=== PATIENT | male | born 1975 | race Caucasian/White ===

== ENCOUNTER → 2017-08-20 | Outpatient (CLI) | payer OTHER ==
--- NOTE | 2017-08-21 12:53 | RADIOLOGY REPORT (SQ) ---
EXAM DESCRIPTION: MRI RT UPPER EXTREMITY COMBO COMPLETED DATE/TIME: 08/20/2017 7:47 pm REASON FOR STUDY: MASS OF JOINT OF RIGHT HAND, OTHER SPECIFIED JOINT DISORDERS, RIGHT HAND M25.841 OTHER SPECIFIED JOINT DISORDERS, RIGHT HAND COMPARISON: None. TECHNIQUE: Multiplanar imaging of the right hand to include fat and fluid sensitive sequences. RENAL FUNCTION: Not indicated LIMITATIONS: None. FINDINGS: In the subcutaneous tissues on the dorsal aspect of the 3rd metacarpophalangeal joint, the re is a 2.5 x 6 mm well-circumscribed lesion following fluid on all sequences associated with more ge neralized swelling in the soft tissues. There is thickening and slight increased fluid in the adjace nt extensor tendon sheath. Marrow signal is normal. IMPRESSION: Nonaggressive cystic lesion, either posttraumatic or ganglion cyst. Mild tenosynovitis in the adjacent extensor tendon. TECHNICAL DOCUMENTATION: JOB ID: [id number] [employer]- All Rights Reserved Reading location - IP/workstation name: [email or web address]
== END ==
LOC: RAD 17:54
PROVIDERS: ATTEND Orthopaedic Surgery
DX: M25.841 Other specified joint disorders, right hand (principal)